=== PATIENT | female | born 1965 | race Caucasian/White ===

== ENCOUNTER → 2017-11-27 09:16 | Outpatient (CLI) | payer OTHER, SELFPAY ==
--- NOTE | 2017-11-27 | DI.MG.S_ITS ---
BILATERAL DIGITAL SCREENING MAMMOGRAM 3D/2D WITH CAD: 11/27/2017 CLINICAL: Routine screening. Family history of breast cancer. Comparison is made to exams dated: 11/15/2016 mammogram, 10/21/2015 mammogram, and 08/11/2014 mammogram - [facility]. The tissue of both breasts is extremely dense, which lowers the sensitivity of mammography. Current study was also evaluated with a Computer Aided Detection (CAD) system. No significant masses, calcifications, or other findings are seen in either breast. There has been no significant interval change. IMPRESSION: NEGATIVE There is no mammographic evidence of malignancy. A 1 year screening mammogram is recommended. This exam was interpreted at Station ID: [id number]. NOTE: For mammograms, a report in lay terms will be sent to the patient. Approximately 15% of breast malignancies will not be visualized mammographically. In the management of a palpable breast mass, a negative mammogram must not discourage biopsy of a clinically suspicious lesion. Electronically Signed By: Natalia diehl/vick:11/28/2017 10:30:51 letter sent: Normal Exam ACR BI-RADS Category 1: Negative 3341F
== END ==
PROVIDERS: PCP Family Medicine; Visit Provider Family Medicine
DX: Z12.31 Encounter for screening mammogram for malignant neoplasm of breast (principal); Z80.3 Family history of malignant neoplasm of breast
CPT/HCPCS: 77063; 77067

== ENCOUNTER → 2018-12-10 10:12 | Outpatient (CLI) | payer OTHER, SELFPAY ==
--- NOTE | 2018-12-10 | DI.MG.S_ITS ---
BILATERAL DIGITAL SCREENING MAMMOGRAM 3D/2D WITH CAD: 12/10/2018 CLINICAL: Routine screening. Family history of breast cancer. Comparison is made to exams dated: 11/27/2017 mammogram, 11/15/2016 mammogram, and 10/21/2015 mammogram - [facility]. The tissue of both breasts is extremely dense, which lowers the sensitivity of mammography. Current study was also evaluated with a Computer Aided Detection (CAD) system. There is an oval asymmetry in the right breast posterior depth superior region best seen on the mediolateral oblique view; finding is best noted on tomographic MLO slice 30/80. A possible correlate is seen in the lateral right breast at posterior depth (best noted on tomographic CC slice 44/78). No other significant masses, calcifications, or other findings are seen in either breast. IMPRESSION: INCOMPLETE: NEEDS ADDITIONAL IMAGING EVALUATION The oval asymmetry in the superior right breast at posterior depth is indeterminate, and may correlate with an asymmetry in the lateral right breast at posterior depth. Additional views with possible ultrasound are recommended. This exam was interpreted at Station ID: [id number]. NOTE: For mammograms, a report in lay terms will be sent to the patient. Approximately 15% of breast malignancies will not be visualized mammographically. In the management of a palpable breast mass, a negative mammogram must not discourage biopsy of a clinically suspicious lesion. Electronically Signed By: Toni Perez M.D. ecl/:12/10/2018 12:19:38 letter sent: Additional Imaging Needed ACR BI-RADS Category 0: Incomplete 3340F
== END ==
PROVIDERS: PCP Family Medicine; Visit Provider Family Medicine
DX: Z12.31 Encounter for screening mammogram for malignant neoplasm of breast (principal); Z80.3 Family history of malignant neoplasm of breast
CPT/HCPCS: 77063; 77067

== ENCOUNTER → 2018-12-25 14:46 | Outpatient (CLI) | payer OTHER, SELFPAY ==
--- NOTE | 2018-12-25 | DI.MG.S_ITS ---
UNILATERAL RIGHT DIGITAL DIAGNOSTIC MAMMOGRAM 3D/2D WITH ADDITIONAL VIEWS: 12/25/2018 CLINICAL: Additional evaluation requested from prior study. Comparison is made to exams dated: 12/10/2018 mammogram, 11/27/2017 mammogram, and 11/15/2016 mammogram - [facility]. The tissue of right breast is extremely dense, which lowers the sensitivity of mammography. There is a 1.8 cm oval equal density mass with a circumscribed margin in the right breast at 11 o'clock posterior depth. This is seen in additional views. This is increased in size. No other significant masses or calcifications are seen in the breast. IMPRESSION: INCOMPLETE: NEEDS ADDITIONAL IMAGING EVALUATION The 1.8 cm oval equal density mass in the right breast is indeterminate. An ultrasound is recommended. This was performed immediately following this exam. This exam was interpreted at Station ID: [id number]. NOTE: For mammograms, a report in lay terms will be sent to the patient. Approximately 15% of breast malignancies will not be visualized mammographically. In the management of a palpable breast mass, a negative mammogram must not discourage biopsy of a clinically suspicious lesion. Electronically Signed By: Nila franklin/:12/25/2018 17:34:55 ACR BI-RADS Category 0: Incomplete 3340F
--- NOTE | 2018-12-25 | DI.US.S_ITS ---
LIMITED ULTRASOUND OF RIGHT BREAST AND AXILLA: 12/25/2018 CLINICAL: Patient returns today to evaluate a focal asymmetry in the right breast. Comparison is made to exams dated: 12/25/2018 mammogram, 12/10/2018 mammogram, 11/27/2017 mammogram, 11/15/2016 mammogram, and 10/21/2015 mammogram - [facility]. Color flow and real-time ultrasound of the right breast 10 o'clock, and axilla regions were performed. Jernigan scale images of the real-time examination were reviewed. There is 1.7 cm x 1.7 cm x 1.2 cm oval cyst with a thin internal septation in the right breast at 10 o'clock posterior depth 7 cm from the nipple. This oval cyst is anechoic with posterior acoustic enhancement. This correlates with mammography findings. Color flow imaging demonstrates that there is no vascularity present. Incidental note made of a benign 0.8 cm x 0.6 cm x 0.5 cm oval cyst in the right breast at 10 o'clock in the retroareolar region 1 cm from the nipple. No abnormalities were seen sonographically in the right axilla. IMPRESSION: PROBABLY BENIGN The 1.7 cm x 1.7 cm x 1.2 cm oval cyst in the right breast at 10 o'clock posterior depth is consistent with minimally complicated cysts and is probably benign. The 0.8 cm x 0.6 cm x 0.5 cm oval cyst in the right breast at 10 o'clock in the retroareolar region is consistent with a simple cyst and is benign. A follow-up right ultrasound in 6 months is recommended to demonstrate stability. Findings and recommendations were conveyed to the patient at time of exam. This exam was interpreted at Station ID: [id number]. Electronically Signed By: Nila franklin/:12/25/2018 17:38:51 letter sent: Followup Recommended Ultrasound BI-RADS: 3 Probably benign
== END ==
PROVIDERS: PCP Family Medicine; Visit Provider Family Medicine
DX: R92.8 Other abnormal and inconclusive findings on diagnostic imaging of breast (principal); N60.01 Solitary cyst of right breast
CPT/HCPCS: 76642; 77065; G0279

== ENCOUNTER → 2019-05-01 13:07 | Outpatient (CLI) | payer OTHER, SELFPAY | PROVIDERS: Family Provider Family Medicine; PCP Family Medicine | DX: Z13.9 Encounter for screening, unspecified (principal) | CPT/HCPCS: 36415; 99001 ==

== ENCOUNTER → 2019-06-24 | Outpatient (CLI) | payer OTHER, SELFPAY ==
--- NOTE | 2019-06-24 | DI.US.S_ITS ---
LIMITED ULTRASOUND OF RIGHT BREAST AND AXILLA: 06/24/2019 CLINICAL: Additional evaluation requested from prior study. Comparison is made to exams dated: 12/25/2018 ultrasound, 12/25/2018 mammogram, 12/10/2018 mammogram, and 11/27/2017 mammogram - [facility]. Color flow and real-time ultrasound of the right breast 10 o'clock, and axilla regions were performed. Jernigan scale images of the real-time examination were reviewed. There is a 1.6 cm x 0.9 cm x 1.1 cm (previously 1.7 x 1.7 x 1.2 cm)oval cyst with a septated internal wall in the right breast at 10 o'clock posterior depth 7 cm from the nipple. This oval cyst is hypoechoic with a well-defined boundary, internal echoes, and posterior acoustic enhancement. This correlates with mammography findings. Color flow imaging demonstrates that there is no vascularity present. There also is a benign 0.3 cm x 0.3 cm x 0.4 cm (previously 0.8 x 0.5 x 0.6 cm) oval cyst in the right breast at 10 o'clock in the retroareolar region 1 cm from the nipple. This oval cyst is anechoic with a well-defined boundary and posterior acoustic enhancement. Color flow imaging demonstrates that there is no vascularity present. No significant abnormalities were seen sonographically in the right axilla. IMPRESSION: PROBABLY BENIGN 1) The 1.6 cm oval cyst in the right breast at 10 o'clock posterior depth is decreased in size and consistent with a complicated cyst and is probably benign. 2) The 0.3 cm x 0.3 cm x 0.4 cm oval cyst in the right breast at 10 o'clock in the retroareolar region is consistent with a simple cyst and is benign. A follow-up ultrasound in 6 months is recommended to demonstrate continued decrease in size or long-term stability. Patient is also due for screening mammogram at that time. Exam findings were conveyed to the patient. This exam was interpreted at Station ID: [id number]. Electronically Signed By: Valerio Arana M.D. slc/:07/09/2019 15:03:49 letter sent: Followup Recommended Ultrasound BI-RADS: 3 Probably benign
== END ==
LOC: US 10:04
PROVIDERS: Family Provider Family Medicine; PCP Family Medicine; Referring Provider Family Medicine; Visit Provider Family Medicine
DX: R92.8 Other abnormal and inconclusive findings on diagnostic imaging of breast (principal); N60.01 Solitary cyst of right breast
CPT/HCPCS: 76642

== ENCOUNTER → 2019-12-16 13:52 | Outpatient (CLI) | payer OTHER, SELFPAY ==
--- NOTE | 2019-12-16 | DI.MG.S_ITS ---
BILATERAL DIGITAL DIAGNOSTIC MAMMOGRAM 3D/2D SHORT-TERM FOLLOW-UP: 12/16/2019 CLINICAL: Patient returns for a 6 month follow up of the right breast, due for bilateral exam. Comparison is made to exams dated: 12/25/2018 mammogram, 12/10/2018 mammogram, 11/27/2017 mammogram, and 06/24/2019 [facility]. The tissue of both breasts is extremely dense, which lowers the sensitivity of mammography. There is a 1.6 cm oval equal density asymmetry in the right breast at 10 o'clock posterior depth. This is less prominent and correlates with the prior exam. No other significant masses, calcifications, or other findings are seen in either breast. IMPRESSION: INCOMPLETE: NEEDS ADDITIONAL IMAGING EVALUATION The 1.6 cm oval equal density asymmetry in the right breast is less prominent, and may be resolving. An ultrasound is recommended. This was performed immediately following this exam. This exam was interpreted at Station ID: [id number]. NOTE: For mammograms, a report in lay terms will be sent to the patient. Approximately 15% of breast malignancies will not be visualized mammographically. In the management of a palpable breast mass, a negative mammogram must not discourage biopsy of a clinically suspicious lesion. Electronically Signed By: Nila franklin/:12/16/2019 14:17:22 ACR BI-RADS Category 0: Incomplete 3340F
--- NOTE | 2019-12-16 | DI.US.S_ITS ---
LIMITED ULTRASOUND OF RIGHT BREAST: 12/16/2019 CLINICAL: Rt breast 6 month follow-up. Comparison is made to exams dated: 12/16/2019 mammogram, 06/24/2019 ultrasound, 12/25/2018 ultrasound, 12/25/2018 mammogram, 12/10/2018 mammogram, and 11/27/2017 mammogram - [facility]. Color flow and real-time ultrasound of the right breast 10 o'clock region were performed. Jernigan scale images of the real-time examination were reviewed. There is a benign 1.2 cm x 0.8 cm x 1.3 cm oval cyst in the right breast at 10 o'clock posterior depth 7 cm from the nipple. This oval cyst displays posterior acoustic enhancement. This abnormality has mildly decreased in size. Color flow imaging demonstrates that there is no vascularity present. IMPRESSION: BENIGN There is no sonographic evidence of malignancy. The 1.2 cm x 0.8 cm x 1.3 cm oval cyst in the right breast is benign. Return to annual mammogram screening schedule is recommended. Findings and recommendations were conveyed to the patient at time of exam. This exam was interpreted at Station ID: [id number]. Electronically Signed By: Nila franklin/:12/16/2019 14:45:06 letter sent: Normal Exam Ultrasound BI-RADS: 2 Benign
== END ==
PROVIDERS: Family Provider Family Medicine; PCP Family Medicine; Referring Provider Family Medicine; Visit Provider Family Medicine
DX: R92.8 Other abnormal and inconclusive findings on diagnostic imaging of breast (principal); N60.01 Solitary cyst of right breast
CPT/HCPCS: 76642; 77066; G0279

== ENCOUNTER → 2020-05-18 11:05 | Outpatient (CLI) | payer OTHER, SELFPAY ==
--- NOTE | 2020-05-18 | DI.RAD.S_ITS ---
PROCEDURE: XR FOOT LT MIN 3V INDICATIONS: LEFT HEEL PAIN TECHNIQUE: 3 views of the foot were acquired. COMPARISON: None. FINDINGS: Bones: No fracture. Plantar and posterior calcaneal spurring. Diffuse hindfoot and midfoot sclerosis and spurring. Soft tissues: No tibiotalar joint effusion. Achilles tendon appears normal. IMPRESSION: Plantar and posterior calcaneal spurring. Dictated by: Aman De Leon M.D. on 05/18/2020 at 13:19 Approved by: Aman De Leon M.D. on 05/18/2020 at 13:21
== END ==
PROVIDERS: Family Provider Family Medicine; PCP Family Medicine; Referring Provider Family Medicine; Visit Provider Family Medicine
DX: M79.672 Pain in left foot (principal); M77.32 Calcaneal spur, left foot
CPT/HCPCS: 73630

== ENCOUNTER → 2020-10-13 09:35 | Outpatient (CLI) | payer OTHER, SELFPAY ==
[2020-10-13 12:07] LABS: COVID19 -Nasal RAPID Negative (Negative)
== END ==
PROVIDERS: Family Provider Family Medicine; PCP Family Medicine; Visit Provider Physician Assistant
DX: Z01.812 Encounter for preprocedural laboratory examination (principal); Z20.822 Contact with and (suspected) exposure to COVID-19
CPT/HCPCS: 87635

== ENCOUNTER 2020-10-15 11:59 | Day surgery (SDC) | payer OTHER, SELFPAY ==
--- NOTE | 2020-10-15 12:12 | PM.HP.1 ---
History of Present Illness History of Present Illness Date Patient Seen: 10/15/20 Chief complaint: SDC Narrative: 54 Years Old Female seen today for consideration of a screening colonoscopy. FIT negative on 04/09/20. There have been no lower GI symptoms suggesting disease such as change in bowel habits, bleeding, abdominal pain or anemia. Her father did have colon polyps. Overall health issues have been stable, including no major cardiac events for at least 6 weeks. Past Medical History: Syrinx T10-T12 Hx of Abnormal Pap Smear: 08/31/14 ASCUS, HPV- Pain in right ankle Abnormal mammogram ONYCHOMYCOSIS VITAMIN D DEFICIENCY Generalized anxiety disorder in remission Major depression, in remission History of MTHFR mutation Past Surgical History: Appendectomy (1974) Right stapedotomy Family History: Father: Hyperlipidemia, Hypertension , heart disease, Crohn's disease, colon polyps Mother: Hyperlipidemia, Hypertension , depression, heart disease osteoporosis. Multiple infections involving right knee replacement. Siblings: sister; Melanoma, multiple myeloma Asthma- Sibling Social History: Marital Status: , dx multiple myeloma 2002 Children:Sonia Armendariz Occupation: Self employed business salad bar clerk Household Members: Kala Gramajo Serena Education: 16 years [facility] [facility] < 1 drink per day. Patient History Medical History (Updated 10/15/20 @ 12:33 by Linda Coles RN) Bone spur of foot Depression Meds Home Medications and Allergies Home Medications Medication Instructions Recorded Confirmed Type desvenlafaxine succinate 25 mg PO DAILY 10/15/20 10/15/20 History escitalopram oxalate 5 mg PO DAILY 10/15/20 10/15/20 History Allergies Allergy/AdvReac Type Severity Reaction Status Date / Time cephalexin [From Keflex] Allergy Intermediate Rash Verified 10/15/20 12:33 Review of Systems Review of Systems ROS: Yes All systems reviewed with the patient and are negative except as otherwise documented Exam Narrative Exam Narrative: GENERAL: Alert and oriented, appearing stated age and in no acute distress. HEENT: Head normocephalic/atraumatic. Pupils equal, round, and reactive to light and accomodation. Extraocular muscles intact. Tympanic membranes clear. Nasal mucosa moist, septum midline. Oral mucosa moist, no lesions. Neck soft and supple, no lymphadenopathy. LUNGS: Clear to ausculation bilaterally, no wheezes, rhonchi or rales. CV: Normal S1 and S2 with regular rate and rhythm, no audible murmurs, rubs or gallops. ABDOMEN: Soft, non-tender, non-distended, no organomegaly. Positive bowel sounds. EXTREMITIES: No clubbing, cyanosis, or edema. NEURO: Cranial nerves II through XII grossly intact, no focal deficits. PSYCH: Alert and oriented x 3. SKIN: No concerning lesions. Assessment & Plan Assessment & Plan narrative: 1. Family history of colon polyps 2. Screening for colon cancer Plan for colonoscopy. The nature and character of the procedure as well as anticipated results were discussed. The possibility of not completing the procedure was also discussed. Possible complications including aspiration pneumonia, bleeding, perforation and reaction to medications either for sedation or preparation and missed lesions were discussed. Questions were answered and proceeding to the colonoscopy was elected. Informed consent signed. I sincerely appreciate the referral allowing me to participate in this patient's care. Please contact me with any questions or concerns.
--- NOTE | 2020-10-15 12:14 | PM.OP.ENDO ---
Operative Date/Time/Diagnoses Date of procedure: 10/15/20 Procedure Notes SCOAP/Timeout: 1:05 p.m. Procedure in detail: ENDOSCOPIST: Judi Palmer MD Sedation RN: Aldair Olson RN Sedation start time: 4:06 p.m. Sedation end time: 1:37 p.m. PROCEDURE: Colonoscopy INDICATIONS: 1. Family history of colon polyps 2. Screening for colon cancer MEDICATION: Levsin 0.125 mg sublingual, incremental doses of Versed and fentanyl until appropriate level sedation achieved. ASA CLASS: 2 CECAL WITHDRAWAL TIME: 9 minutes COMPLICATIONS: None. EXTENT OF PROCEDURE: Cecum. QUALITY OF PREP: Good with portions of liquid stool. PROCEDURE: Prior to insertion of the colonoscope, a digital rectal examination was accomplished with circumferential palpation of the distal rectal mucosa without significant findings being noted. The high-definition pediatric colonoscope was passed into the rectum in the usual fashion and advanced over to the cecum without difficulty. The ileocecal valve, appendiceal stoma, and medial wall all could be inspected and no abnormalities were seen. ASCENDING COLON: As the colonoscope was withdrawn, care was taken to expose and inspect the haustral folds and no abnormalities were seen. HEPATIC FLEXURE: Normal, no polyps, diverticula or other abnormalities. TRANSVERSE COLON: Normal, no polyps, diverticula or other abnormalities. DESCENDING COLON: Normal, no polyps, diverticula or other abnormalities. SIGMOID COLON: Diverticula x1. Otherwise, normal, no polyps, or other abnormalities. RECTUM: Normal. J maneuver was produced. There was no significant perianal disease. The J maneuver was broken. The remainder of the rectum was inspected and there was no external hemorrhoid disease. The scope was withdrawn. IMPRESSION: 1. Normal colonoscopy 2. Diverticula x1, sigmoid colon PLAN: 1. Repeat colonoscopy in 10 years. The possibility of a missed lesion including a malignancy has been discussed with the patient previously. Potential alarm symptoms have been discussed and should be reported immediately.
[2020-10-15 12:34] VITALS: BMI 23.7
[2020-10-15 12:45] VITALS: BP 109/76; PULSE 77; RESP 16; TEMP 36.3; O2SAT 97
[2020-10-15] MEDS: HYOSCYAMINE 0.125 MG TABLET PO (12:52)
[2020-10-15] MEDS: LACTATED RINGERS 1,000 ML 200 ML IV (12:53)
[2020-10-15] MEDS: MIDAZOLAM 5 MG/5 ML VIAL IV (13:25)
[2020-10-15] MEDS: fentaNYL 250 MCG/5 ML INJ IV (13:25)
[2020-10-15 13:42] VITALS: BP 104/76; PULSE 77; RESP 16; TEMP 36.4; O2SAT 98
[2020-10-15 13:47] VITALS: BP 100/69; PULSE 84; RESP 14; O2SAT 98
[2020-10-15 13:51] VITALS: BP 113/77; PULSE 84; RESP 16; O2SAT 99
[2020-10-15 13:56] VITALS: BP 105/73; PULSE 74; RESP 14; TEMP 36.2; O2SAT 99
[2020-10-15 13:58] VITALS: BP 115/72; PULSE 67; RESP 14; TEMP 36.2; O2SAT 99
== END 2020-10-15 14:10 | disposition home or self-care (01) ==
PROVIDERS: Family Provider Family Medicine; PCP Family Medicine; Referring Provider Student in an Organized Health Care Education/Training Program; Visit Provider Student in an Organized Health Care Education/Training Program
PROC: 0DJD8ZZ Inspection of Lower Intestinal Tract, Via Natural or Artificial Opening Endoscopic (ICD-10-PCS; CPT 45378; principal; 2020-10-15 13:00)
DX: Z12.11 Encounter for screening for malignant neoplasm of colon (principal); Z83.71 Family history of colonic polyps; K57.30 Diverticulosis of large intestine without perforation or abscess without bleeding
CPT/HCPCS: 45378; J2250; J3010

== ENCOUNTER → 2021-09-30 13:50 | Outpatient (CLI) | payer OTHER, SELFPAY ==
--- NOTE | 2021-09-30 | DI.RAD.S_ITS ---
PROCEDURE: XR FINGER RT MIN 2V INDICATIONS: Pain in right finger(s) TECHNIQUE: AP hand, 2 views of the 1st finger(s) acquired. COMPARISON: None. FINDINGS: Bones: Small well corticated bony fragment adjacent to the interphalangeal joint of the 1st digit. No acute fractures or dislocations. No suspicious bony lesions. Soft tissues: No suspicious soft tissue calcifications. IMPRESSION: Small bony fragment adjacent to the 1st digit as described above, possibly indicating a chronic fracture fragment. No acute fracture. No osseous lesion. If symptoms and/or clinical suspicion for pathology persist, further assessment with repeat, or advanced imaging (e.g., CT, MRI, or bone scan) may be helpful for further assessment. Dictated by: Kanwal Coughlin M.D. on 09/30/2021 at 16:22 Approved by: Kanwal Coughlin M.D. on 09/30/2021 at 16:58
== END ==
PROVIDERS: Family Provider Family Medicine; PCP Family Medicine; Referring Provider Family Medicine; Visit Provider Family Medicine
DX: M79.644 Pain in right finger(s) (principal)
CPT/HCPCS: 73140

== ENCOUNTER → 2022-05-10 10:47 | Outpatient (CLI) | payer OTHER, SELFPAY ==
--- NOTE | 2022-05-10 | DI.MG.S_ITS ---
BILATERAL DIGITAL SCREENING MAMMOGRAM 3D/2D WITH CAD: 05/10/2022 CLINICAL: Routine screening. Family history of breast cancer. Comparison is made to exams dated: 12/16/2019 mammogram, 12/10/2018 mammogram, 11/27/2017 mammogram, and 11/15/2016 mammogram - [facility]. Both breasts are extremely dense, which lowers the sensitivity of mammography (category d />75% glandular tissue). Current study was also evaluated with a Computer Aided Detection (CAD) system. No significant masses, calcifications, or other findings are seen in either breast. There has been no significant interval change. IMPRESSION: NEGATIVE There is no mammographic evidence of malignancy. A 1 year screening mammogram is recommended. This exam was interpreted at Station ID: [id number]. NOTE: For mammograms, a report in lay terms will be sent to the patient. Approximately 15% of breast malignancies will not be visualized mammographically. In the management of a palpable breast mass, a negative mammogram must not discourage biopsy of a clinically suspicious lesion. Electronically Signed By: Blake Up M.D., jr/vick:05/10/2022 13:28:27 letter sent: Normal Exam ACR BI-RADS Category 1: Negative 3341F
== END ==
PROVIDERS: Family Provider Family Medicine; PCP Family Medicine; Referring Provider Family Medicine; Visit Provider Family Medicine
DX: Z12.31 Encounter for screening mammogram for malignant neoplasm of breast (principal); Z80.3 Family history of malignant neoplasm of breast
CPT/HCPCS: 77063; 77067

== ENCOUNTER → 2023-06-07 11:45 | Outpatient (CLI) | payer OTHER, SELFPAY ==
--- NOTE | 2023-06-07 11:46 | DI.MG.S_ITS ---
BILATERAL DIGITAL SCREENING MAMMOGRAM 3D/2D WITH CAD: 06/07/2023 CLINICAL: Routine screening. Family history of breast cancer. Comparison is made to exams dated: 05/10/2022 mammogram, 12/16/2019 mammogram, 12/25/2018 mammogram, 12/10/2018 mammogram, and 11/27/2017 mammogram - [facility]. Both breasts are extremely dense, which lowers the sensitivity of mammography (category d />75% glandular tissue). Current study was also evaluated with a Computer Aided Detection (CAD) system. No significant masses, calcifications, or other findings are seen in either breast. There has been no significant interval change. IMPRESSION: NEGATIVE There is no mammographic evidence of malignancy. A 1 year screening mammogram is recommended. Based on the Tyrer Cuzick model (a risk assessment model) the patient's lifetime risk is 19.6% and her 10 year risk is 6.2%. According to the ACR, ACS, and NCCN guidelines, an annual breast MRI exam along with mammogram is recommended if the patient's lifetime risk is 20% or greater. This exam was interpreted at Station ID: [id number]. NOTE: For mammograms, a report in lay terms will be sent to the patient. Approximately 15% of breast malignancies will not be visualized mammographically. In the management of a palpable breast mass, a negative mammogram must not discourage biopsy of a clinically suspicious lesion. Electronically Signed By: Luis Alfredo lopez/vick:06/07/2023 14:23:09 letter sent: Normal Exam ACR BI-RADS Category 1: Negative [id number]
== END ==
LOC: MAMMO 11:46
PROVIDERS: PCP Family Medicine; Referring Provider Family Medicine; Visit Provider Family Medicine
DX: Z12.31 Encounter for screening mammogram for malignant neoplasm of breast (principal); Z80.3 Family history of malignant neoplasm of breast; R92.343 Mammographic extreme density, bilateral breasts
CPT/HCPCS: 77063; 77067

== ENCOUNTER → 2023-12-31 13:31 | Outpatient (CLI) | payer OTHER, SELFPAY ==
--- NOTE | 2023-12-31 13:33 | DI.RAD.S_ITS ---
PROCEDURE: XR KNEE LT 3V INDICATIONS: acute knee pain TECHNIQUE: 3 views of the knee were acquired. COMPARISON: None. FINDINGS: Bones: Subtle avulsion injury of the proximal fibula as seen on lateral view. Otherwise no acute fracture or subluxation seen. No suspicious bony lesions. Soft tissues: No radiographically evident suprapatellar joint effusion IMPRESSION: Possible subtle avulsion injury of the proximal fibula; correlate times. Dictated by: Xavi Medrano M.D. on 12/31/2023 at 16:45 Approved by: Xavi Medrano M.D. on 12/31/2023 at 16:48
--- NOTE | 2023-12-31 13:33 | DI.RAD.S_ITS ---
PROCEDURE: XR KNEE RT 3V INDICATIONS: acute knee pain TECHNIQUE: 3 views of the knee were acquired. COMPARISON: None. FINDINGS: Bones: No fractures or dislocation identified. Soft tissues: No radiographically evident suprapatellar joint effusion. IMPRESSION: No acute bony abnormality or significant effusion. Dictated by: Xavi Medrano M.D. on 12/31/2023 at 16:48 Approved by: Xavi Medrano M.D. on 12/31/2023 at 16:50
== END ==
PROVIDERS: PCP Family Medicine; Referring Provider Family Medicine; Visit Provider Family Medicine
DX: M25.561 Pain in right knee (principal); M25.562 Pain in left knee
CPT/HCPCS: 73562

== ENCOUNTER → 2024-07-07 10:49 | Outpatient (CLI) | payer OTHER, SELFPAY ==
--- NOTE | 2024-07-07 10:51 | DI.MG.S_ITS ---
BILATERAL DIGITAL SCREENING MAMMOGRAM 3D/2D WITH CAD: 07/07/2024 CLINICAL: Routine screening. Family history of breast cancer. Comparison is made to exams dated: 06/07/2023 mammogram, 05/10/2022 mammogram, and 12/16/2019 mammogram - [facility]. The breasts are extremely dense, which lowers the sensitivity of mammography (category d />75% glandular tissue). Current study was also evaluated with a Computer Aided Detection (CAD) system. There are developing grouped calcifications in the right breast at 11 o'clock posterior depth. No other significant masses, calcifications, or other findings are seen in either breast. Mammograms are otherwise stable. IMPRESSION: INCOMPLETE: NEED ADDITIONAL IMAGING EVALUATION The developing grouped calcifications in the right breast are indeterminate. Magnification views as well as additional views with possible ultrasound are recommended. Based on the Tyrer Cuzick model (a risk assessment model) the patient's lifetime risk is 19.5% and her 10 year risk is 6.6%. According to the ACR, ACS, and NCCN guidelines, an annual breast MRI exam along with mammogram is recommended if the patient's lifetime risk is 20% or greater. This exam was interpreted at Station ID: [id number]. NOTE: For mammograms, a report in lay terms will be sent to the patient. Approximately 15% of breast malignancies will not be visualized mammographically. In the management of a palpable breast mass, a negative mammogram must not discourage biopsy of a clinically suspicious lesion. Electronically Signed By: Nila franklin/:07/07/2024 11:51:08 letter sent: Additional Imaging Needed ACR BI-RADS Category 0: Incomplete: Need Additional Imaging Evaluation
--- NOTE | 2024-07-07 10:52 | DI.RAD.S_ITS ---
PROCEDURE: XR CHEST 2V INDICATIONS: PRECORDIAL PAIN TECHNIQUE: 2 views of the chest were acquired. COMPARISON: None. FINDINGS: Surgical changes and devices: None. Lungs and pleura: Lungs are clear. No pleural effusions or pneumothorax. Mediastinum: Mediastinal contours are normal. Heart size is normal. Bones and chest wall: No suspicious bony abnormalities. Soft tissues appear unremarkable. IMPRESSION: No acute cardiopulmonary abnormality is seen. Dictated by: Matthias Yarbrough M.D. on 07/07/2024 at 13:33 Approved by: Matthias Yarbrough M.D. on 07/07/2024 at 13:33
== END ==
PROVIDERS: PCP Family Medicine; Referring Provider Family Medicine; Visit Provider Family Medicine
DX: Z12.31 Encounter for screening mammogram for malignant neoplasm of breast (principal); Z80.3 Family history of malignant neoplasm of breast; R92.343 Mammographic extreme density, bilateral breasts; R07.2 Precordial pain
CPT/HCPCS: 71046; 77063; 77067

== ENCOUNTER → 2024-08-13 10:33 | Outpatient (CLI) | payer OTHER, SELFPAY ==
--- NOTE | 2024-08-13 10:34 | DI.US.S_ITS ---
PROCEDURE: US BREAST RT LIMITED COMPARISON: [facility], BREAST RT LIMITED, 12/16/2019, 14:26. INDICATIONS: ABN MAMMO RT BREAST FINDINGS: IMPRESSION: Dictated by: Lila Morrell M.D. on 08/13/2024 at 11:07 Approved by: Lila Morrell M.D. on 08/13/2024 at 11:11
--- NOTE | 2024-08-13 10:34 | DI.MG.S_ITS ---
MM diagnostic mammo unilat RT, US breast RT limited: 08/13/2024 BI-RADS: 4B CLINICAL: 58-year old female for right diagnostic mammogram and right diagnostic breast ultrasound that is a recall from screening, bilateral, digital, tomosynthesis, w/mammo cad on 07/07/2024. [facility] lifetime risk of 12.8%. No personal or first-degree family history of breast cancer. Current reported family history of breast cancer: maternal aunt. PRIOR EXAMS 07/07/2024, 06/07/2023, 05/10/2022, 12/16/2019, 06/24/2019, 12/25/2018, 12/10/2018, 11/27/2017, 11/15/2016, 10/21/2015. MAMMOGRAPHY TECHNIQUE: 2D and 3D (tomosynthesis) digital mammographic views obtained, with additional images as needed for full coverage. Current study was also evaluated with a Computer Aided Detection (CAD) system. ULTRASOUND TECHNIQUE TARGETED Right Breast Ultrasound: Real-time ultrasound exam was performed focused to area of clinical and/or imaging concern. DENSITY Right: C. The breasts are heterogeneously dense, which may obscure small masses. MAMMOGRAPHY FINDINGS Right (finding-1): Upper Outer at 11:00, 9 cm from nipple, Posterior depth, measuring 0.5 cm: There are new grouped amorphous calcifications. A few of the calcifications may be layering. ULTRASOUND FINDINGS Right (finding-1): Upper Outer at 11:00, 9 cm from nipple: No suspicious sonographic finding present. The right breast at 10:00, 9 cm from the nipple was also examined, and no sonographic correlate was identified. IMPRESSION: Right (Calcification): Upper Outer at 11:00, 9 cm from nipple, Posterior depth, measuring 0.5 cm * Moderate Suspicion of Malignancy. RECOMMENDATIONS Right: Upper Outer at 11:00, 9 cm from nipple, Posterior depth * Stereotactic-guided biopsy for further evaluation. COMMENTS: Findings and recommendations were discussed with the patient by Dr. Spann during today's examination. OVERALL ASSESSMENT CATEGORY BI-RADS-4: Suspicious. ELECTRONICALLY SIGNED: Lila Morrell M.D. on 08/13/2024 at 11:36:34 AM PT Interpreting Station ID: [id number]
--- NOTE | 2024-08-13 11:00 | DI.US.S_ITS ---
Patient Name: NAV WOODY date: 1965 Sex: F Attending Physician: Osbaldo Indications: Date: 08/13/2024 11:36 At the request of: CASSIUS RICHARDS Procedure: US breast RT limited MM diagnostic mammo unilat RT, US breast RT limited: 08/13/2024 BI-RADS: 4B CLINICAL: 58-year old female for right diagnostic mammogram and right diagnostic breast ultrasound that is a recall from screening, bilateral, digital, tomosynthesis, w/mammo cad on 07/07/2024. [facility] lifetime risk of 12.8%. No personal or first-degree family history of breast cancer. Current reported family history of breast cancer: maternal aunt. PRIOR EXAMS 07/07/2024, 06/07/2023, 05/10/2022, 12/16/2019, 06/24/2019, 12/25/2018, 12/10/2018, 11/27/2017, 11/15/2016, 10/21/2015. MAMMOGRAPHY TECHNIQUE: 2D and 3D (tomosynthesis) digital mammographic views obtained, with additional images as needed for full coverage. Current study was also evaluated with a Computer Aided Detection (CAD) system. ULTRASOUND TECHNIQUE TARGETED Right Breast Ultrasound: Real-time ultrasound exam was performed focused to area of clinical and/or imaging concern. DENSITY Right: C. The breasts are heterogeneously dense, which may obscure small masses. MAMMOGRAPHY FINDINGS Right (finding-1): Upper Outer at 11:00, 9 cm from nipple, Posterior depth, measuring 0.5 cm: There are new grouped amorphous calcifications. A few of the calcifications may be layering. ULTRASOUND FINDINGS Continued Report - Page 2 of 2 Patient Name: NAV WOODY date: 1965 Sex: F Attending Physician: Osbaldo Indications: Date: 08/13/2024 11:36 At the request of: CASSIUS RICHARDS Procedure: US breast RT limited Right (finding-1): Upper Outer at 11:00, 9 cm from nipple: No suspicious sonographic finding present. The right breast at 10:00, 9 cm from the nipple was also examined, and no sonographic correlate was identified. IMPRESSION: Right (Calcification): Upper Outer at 11:00, 9 cm from nipple, Posterior depth, measuring 0.5 cm * Moderate Suspicion of Malignancy. RECOMMENDATIONS Right: Upper Outer at 11:00, 9 cm from nipple, Posterior depth * Stereotactic-guided biopsy for further evaluation. COMMENTS: Findings and recommendations were discussed with the patient by Dr. Spann during today's examination. OVERALL ASSESSMENT CATEGORY BI-RADS-4: Suspicious. ELECTRONICALLY SIGNED: Lila Morrell M.D. on 08/13/2024 at 11:36:34 AM PT Interpreting Station ID: [id number]
== END ==
PROVIDERS: PCP Family Medicine; Referring Provider Family Medicine; Visit Provider Family Medicine
DX: R92.8 Other abnormal and inconclusive findings on diagnostic imaging of breast (principal); R92.1 Mammographic calcification found on diagnostic imaging of breast; Z80.3 Family history of malignant neoplasm of breast; R92.331 Mammographic heterogeneous density, right breast
CPT/HCPCS: 76642; 77065; G0279